=== PATIENT | female | born 1990 | race African-American/Black ===

== ENCOUNTER 2020-02-22 06:57 | Emergency (ER) | payer MEDICAID ==
[2020-02-22 07:34] VITALS: BP 134/84
--- NOTE | 2020-02-22 09:27 | ER Document Report ---
ED Breast Problem - General Chief Complaint: Drainage from Breast Stated Complaint: RIGHT BREAST PAIN Time Seen by Provider: 02/22/20 09:05 Mode of Arrival: Ambulatory Information source: Patient - HPI Notes: Patient presents with right breast fullness and discharge. She states she noticed that her right breast has been somewhat full the last several days. She states that she squeezed the nipple on her right breast yesterday and noticed white discharge coming from the area and felt that she may have cancer. She states the breast has not been painful and has just been "full". Nothing is made this better or worse. There is no radiation of the symptom. It is been constant and mild to moderate. She only had the discharge the one time and it has not been spontaneous. It was white. Patient states that her 5-year-old child does rub her right breast each night when the child falls asleep. Past Medical History - General Information source: Patient - Social History Smoking Status: Never Smoker Frequency of alcohol use: Social Drug Abuse: None Family History: Reviewed & Not Pertinent Review of Systems - Review of Systems Constitutional: denies: Chills, Fever Cardiovascular: denies: Chest pain, Palpitations Respiratory: denies: Cough, Short of breath -: Yes All other systems reviewed and negative Physical Exam - Vital signs Vitals: Temp Pulse Resp BP Pulse Ox 97.9 F 80 18 134/84 H 98 02/22/20 07:04 02/22/20 07:04 02/22/20 07:04 02/22/20 07:04 02/22/20 07:04 Interpretation: Normal - General General appearance: Appears well, Alert - HEENT Head: Normocephalic, Atraumatic Eyes: Normal Pupils: PERRL - Respiratory Respiratory status: No respiratory distress Chest status: Nontender Breath sounds: Normal Chest palpation: Other - I performed a bilateral manual breast exam with nurse present in the room. On inspection both breasts are normal and relatively symmetric. There is no obvious abnormalities of either breast on inspection. On palpation neither breast has any type of masses or tenderness. There is no nipple discharge from either breast. - Cardiovascular Rhythm: Regular Heart sounds: Normal auscultation Murmur: No - Abdominal Inspection: Normal Distension: No distension Bowel sounds: Normal Tenderness: Nontender Organomegaly: No organomegaly - Back Back: Normal, Nontender - Extremities General upper extremity: Normal inspection, Nontender, Normal color, Normal ROM, Normal temperature General lower extremity: Normal inspection, Nontender, Normal color, Normal ROM, Normal temperature, Normal weight bearing. No: Amanda's sign - Neurological Neuro grossly intact: Yes Cognition: Normal Orientation: AAOx4 Mert Coma Scale Eye Opening: Spontaneous [place] Coma Scale Verbal: Oriented Mert Coma Scale Motor: Obeys Commands [place] Coma Scale Total: 15 Speech: Normal Motor strength normal: LUE, RUE, LLE, RLE Sensory: Normal - Psychological Associated symptoms: Normal affect, Normal mood - Skin Skin Temperature: Warm Skin Moisture: Dry Skin Color: Normal Course - Re-evaluation Re-evalutation: 02/22/20 09:27 Patient was assessed by me. I also discussed the case with the [facility] doctor on-call, Dr. Tang. He states that induced white nipple discharge is normal. And is probably because of the nipple stimulation and breath stimulation that occurs each evening from the patient's child. I did educate the patient about this. I also educated that if she continues to be concerned about cancer, although I find no evidence of cancer, she would need a mammogram for further evaluation. I have also suggested that she follow-up with [facility] as soon as possible. - Vital Signs Vital signs: Temp Pulse Resp BP Pulse Ox 97.9 F 80 18 134/84 H 98 02/22/20 07:04 02/22/20 07:04 02/22/20 07:04 02/22/20 07:04 02/22/20 07:04 Discharge - Discharge Clinical Impression: Discharge from right nipple Condition: Stable Disposition: HOME, SELF-CARE Instructions: Breast Discharge ([facility]) Additional Instructions: Call Dr. Tang as soon as possible to arrange follow up Forms: Return to Work Referrals: MALIKA TANG MD [ACTIVE STAFF] - Follow up in 1 week
== END 2020-02-22 10:00 | disposition home or self-care (01) ==
LOC: ER 06:57
DX: N64.52 Nipple discharge (principal); N64.4 Mastodynia
CPT/HCPCS: 99283